=== PATIENT | female | born 1975 | race Caucasian/White ===

== ENCOUNTER 2024-04-17 10:28 | Emergency (ER) | payer SELFPAY ==
[2024-04-17 10:36] VITALS: BP 168/72; PULSE 104; RESP 18; TEMP 99.6; BMI 32.2
[2024-04-17] MEDS ORDERED: DEXAMETHASONE SOD PHOSPHATE 10 MG/1 ML VIAL ONE (11:12)
[2024-04-17] MEDS ORDERED: ACETAMINOPHEN 500 MG TABLET (FP) ONE (11:12)
[2024-04-17] MEDS ORDERED: IBUPROFEN 600 MG TABLET (FP) PO ONE (11:12)
[2024-04-17] MEDS: ACETAMINOPHEN 500 MG TABLET (FP) PO ONE (11:15)
[2024-04-17] MEDS: IBUPROFEN 600 MG TABLET (FP) PO ONE (11:15)
[2024-04-17] MEDS: DEXAMETHASONE 4 MG TABLET (FP) PO ONE (11:15)
== END 2024-04-17 12:50 | disposition home or self-care (01) ==
LOC: JER 10:28
DX: R05.9 Cough, unspecified (principal); M79.10 Myalgia, unspecified site; R06.02 Shortness of breath; R68.83 Chills (without fever); R51.9 Headache, unspecified; R53.1 Weakness; R07.9 Chest pain, unspecified; R07.0 Pain in throat; Z20.822 Contact with and (suspected) exposure to COVID-19
CPT/HCPCS: 0241U-QW; 71046-TC-FY; 87651; 99284-25